=== PATIENT | female | born 1950 | race Caucasian/White ===

== ENCOUNTER 2017-01-04 14:23 | Emergency (ER) | payer OTHER ==
--- NOTE | 2017-01-04 15:08 | REP ---
LEFT ELBOW SERIES: Four views. HISTORY: Trauma. FINDINGS: Four views of the left elbow demonstrate a subtle fracture of the proximal radial head with hemarthrosis. There is a positive anterior fat pad sign. There is no proximal ulnar or distal humeral fracture is seen. IMPRESSION: Proximal radial head fracture with hemarthrosis and positive fat pad sign. Signed by Jose E Torres MD 01/04/2017 04:01 P
[2017-01-04] MEDS ORDERED: ACETAMINOPH W/CODEINE #3 TAB UD As Ordered ONE (15:22)
--- NOTE | 2017-01-04 15:44 | EDDOCDS ---
Nurse's Notes [facility] Name: Edith Ackerman Age: 66 yrs Sex: Female : 1950 Arrival Date: 01/04/2017 Time: 14:23 Bed PD Private MD: NO PRIMARY PHYSICIAN, . Diagnosis: Fracture of head of radius-Proximal radial head fracture with hemarthrosis and positive fat pad sign, Left, Closed Presentation: 01/04 14:32 Presenting complaint: Patient states: about [address] injuring her left kpj elbow. Adult Sepsis Screening: The patient does not have new or worsening altered mentation. Patient's respiratory rate is less than 22. Systolic blood pressure is greater than 100. Patient has a qSOFA score of. Suicide/Homicide risk assessment- the patient denies having any suicidal and/or homicidal ideations and does not present with any other emotional, behavioral or mental health complaints. Status: Patient is not a eligibility services representative or dependent. Transition of care: patient was not received from another setting of care. 14:32 Acuity: BHARATI Level 4 [facility] 14:32 Method Of Arrival: Walkin/Carried/Asstd [facility] Triage Assessment: 14:33 General: Appears uncomfortable, Behavior is appropriate for age, pleasant. Pain: kpj Location: left elbow Pain currently is 9 out of 10 on a pain scale. Neurological: Level of Consciousness is awake, alert, Oriented to person, place, time. Respiratory: Airway is patent Respiratory effort is even, unlabored, Respiratory pattern is regular, symmetrical. Derm: Skin is pink, warm & dry. Musculoskeletal: Circulation, motion, and sensation intact Capillary refill < 3 seconds in left fingers Range of motion limited in left elbow Reports pain in left elbow. Injury Description: pt fell from standing. Historical: - Allergies: No known drug Allergies; - Home Meds: 1. none - PMHx: Rheumatoid Arthritis; - PSHx: none; - Social history: Smoking status: Patient uses tobacco products, heavy tobacco smoker. No barriers to communication noted, The patient speaks fluent Mozambican. - Family history: Not pertinent. - : The pt / caregiver states he / she is not on anticoagulants. Home medication list is obtained from the patient. - Exposure Risk Screening:: None identified. Screenin:24 Screening information is obtained from the patient. Fall risk: No risks identified. srm Assistance ADL's: requires no assistance with activities of daily living. Abuse/DV Screen: The patient / caregiver reports he/she is: not in a situation that causes fear, pain or injury. Nutritional screening: No deficits noted. home support is adequate. 15:38 Advance Directives: There is. [facility] Assessment: 15:24 General: Appears in no apparent distress, Behavior is appropriate for age, cooperative. srm EENT: No deficits noted. Respiratory: No deficits noted. Musculoskeletal: Reports left elbow pain. moves fingers well. 15:38 General: Appears in no apparent distress, comfortable, Behavior is appropriate for age, h cooperative, sling present on left arm, CSM in tact, reviewed discharge instructions with patient, encouraged and answered questions, declines further needs. Vital Signs: 14:26 BP 133 / 77; Pulse 70; Resp 17; Temp 96.4(T); Pulse Ox 94% on R/A; Weight 63.5 kg (R); lr2 Height 4 ft. 10 in. (147.32 cm) (R); Pain 9/10; 15:29 BP 134 / 86; Pulse 65; Resp 18; Temp 98.2(TE); Pulse Ox 96% on R/A; Pain 9/10; dem1 14:26 Body Mass Index 29.26 (63.50 kg, 147.32 cm) lr2 Vitals: 14:26 Log In Time: January 04, 2017 at 14:23. lr2 ED Course: 14:24 Patient visited by Shelby Martinez. lr2 14:24 Patient moved to Waiting lr2 14:25 NO PRIMARY PHYSICIAN, . is Private Physician. lr2 14:26 Patient moved to Pre RCE lr2 14:33 Triage Initiated [facility] 14:57 [facility] ef1 14:57 Jennyfer aWn MD is Attending Physician. ef1 14:59 Patient visited by Renita Bay PA-C. ef1 14:59 Patient moved to PD2 ef[facility]. ef1 15:24 The patient / caregiver is instructed regarding the plan of care and ED course. Patient srm has correct armband on for positive identification. 15:25 Patient visited by Radha Hirsch RN. srm 15:25 Elbow, Complete Returned. EDNH 15:28 Sling applied to left arm. dem1 15:29 Patient visited by Julio C Leija. dem1 15:32 COUNTS INCLUDE 234 BEDS AT THE [facility] Payment Agreement was scanned into [employer] and attached to record. 15:38 No IV's were initiated during this patient's visit. No procedures done that require [facility] assistance. Administered Medications: 15:24 Drug: Acetaminophen-Codeine 1 tabs [acetaminophen 300 mg-codeine 30 mg tablet (1 tabs)] srm Route: PO; Order Results: Radiology Order: Elbow, Complete Test: Elbow, Complete REASON FOR EXAMINATION: Trauma; LEFT ELBOW SERIES: Four views.; ; HISTORY: Trauma.; ; FINDINGS: Four views of the left elbow demonstrate a subtle fracture of the; proximal radial head with hemarthrosis. There is a positive anterior fat pad; sign. There is no proximal ulnar or distal humeral fracture is seen.; ; IMPRESSION:; Proximal radial head fracture with hemarthrosis and positive fat pad sign.; ; ; ; ; Unreviewed; Outcome: 15:21 Discharge ordered by Provider. 1 15:38 Discharge Assessment: Patient awake, alert and oriented x 3. No cognitive and/or [facility] functional deficits noted. Patient verbalized understanding of disposition instructions. patient administered narcotics - no. The following High Risk Discharge criteria are identified: None. Discharged to home ambulatory. Condition: good Condition: stable Condition: improved. Discharge instructions given to patient, Instructed on discharge instructions, follow up and referral plans. medication usage, no driving heavy equipment, no drinking with medication, Demonstrated understanding of instructions, medications, Pt was receptive of discharge instructions/ teaching. Prescriptions given X 1. No special radiology studies were completed. Property :Personal belongings accompany Pt. 15:43 Patient left the ED. [facility] Signatures: Dispatcher [facility] Bella Roberts RN RN kpj Michelson, Staci, RN RN [facility] Vickey Jeffrey, Reg Reg Renita Bay, PA-C PA-C ef1 Julio C Leija dem1 Chayo Tavares RN RN Shelby Musa lr2 MTDD
--- NOTE | 2017-01-04 15:44 | EDDOCDS ---
Physician Documentation [facility] Name: Edith Ackerman Age: 66 yrs Sex: Female : 1950 Arrival Date: 01/04/2017 Time: 14:23 Bed PD Private MD: NO PRIMARY PHYSICIAN, . Disposition: 01/04/17 15:21 Discharged to Home/Self Care. Impression: Fracture of head of radius - Proximal radial head fracture with hemarthrosis and positive fat pad sign, Left, Closed. - Condition is Stable. - Discharge Instructions: Radial Head Fracture, [id number]. - Prescriptions for Tylenol- Codeine #3 300-30 mg Oral Tablet - take 1 tablet by ORAL route every 6 hours As needed MDD: 4 tabs; 20 tablet. - Medication Reconciliation, Local Pharmacy Hours form. - Follow up: [facility]; When: 1 - 2 days; Reason: Further diagnostic work-up, Recheck today's complaints, Continuance of care. Follow up: Emergency Department; Reason: Worsening of conditions. - Problem is new. - Symptoms have improved. Historical: - Allergies: No known drug Allergies; - Home Meds: 1. none - PMHx: Rheumatoid Arthritis; - PSHx: none; - Social history: Smoking status: Patient uses tobacco products, heavy tobacco smoker. No barriers to communication noted, The patient speaks fluent Bermudian. - Family history: Not pertinent. - : The pt / caregiver states he / she is not on anticoagulants. Home medication list is obtained from the patient. - Exposure Risk Screening:: None identified. Vital Signs: 01/04 14:26 BP 133 / 77; Pulse 70; Resp 17; Temp 96.4(T); Pulse Ox 94% on R/A; Weight 63.5 kg / lr2 139.99 lbs (R); Height 4 ft. 10 in. (147.32 cm) (R); Pain 9/10; 15:29 BP 134 / 86; Pulse 65; Resp 18; Temp 98.2(TE); Pulse Ox 96% on R/A; Pain 9/10; dem1 14:26 Body Mass Index 29.26 (63.50 kg, 147.32 cm) lr2 Procedures: 15:13 Fracture care/splinting: Splint applied to left elbow using sling, applied by tech. ef1 Examined by me, post splint application: neurovascular intact, 2+ distal pulses palpable, brisk capillary refill noted, Patient tolerated well. MDM: 14:36 Elbow, Complete Ordered. EDMS 15:12 Financial registration complete. lg 15:20 Acetaminophen-Codeine 300 mg-30 mg 1 tabs PO once ordered. ef1 15:20 Ice Pack ordered. ef1 15:21 Sling ordered. ef1 15:32 [facility] [place] Payment Agreement was scanned into [employer] and attached to record. lg Administered Medications: 15:24 Drug: Acetaminophen-Codeine 1 tabs [acetaminophen 300 mg-codeine 30 mg tablet (1 tabs)] srm Route: PO; Signatures: Dispatcher [employer] EDAK Bella Roberts RN RN Radha Wellington RN RN srm Vickey Jeffrey, Reg Reg lg Renita Bay, PA-C PA-C [facility] Chayo Tavares RN RN [facility] The chart was reviewed and I authenticate all verbal orders and agree with the evaluation and treatment provided.Attachments: 15:32 [facility] Payment Agreement lg MTDD
--- NOTE | 2017-01-06 16:44 | EDDOCDS ---
Physician Documentation [facility] Name: Edith Ackerman Age: 66 yrs Sex: Female : 1950 Arrival Date: 01/04/2017 Time: 14:23 Bed PD Private MD: NO PRIMARY PHYSICIAN, . Disposition: 01/04/17 15:21 Discharged to Home/Self Care. Impression: Fracture of head of radius - Proximal radial head fracture with hemarthrosis and positive fat pad sign, Left, Closed. - Condition is Stable. - Discharge Instructions: Radial Head Fracture, [id number]. - Prescriptions for Tylenol- Codeine #3 300-30 mg Oral Tablet - take 1 tablet by ORAL route every 6 hours As needed MDD: 4 tabs; 20 tablet. - Medication Reconciliation, Local Pharmacy Hours form. - Follow up: [facility]; When: 1 - 2 days; Reason: Further diagnostic work-up, Recheck today's complaints, Continuance of care. Follow up: Emergency Department; Reason: Worsening of conditions. - Problem is new. - Symptoms have improved. Historical: - Allergies: No known drug Allergies; - Home Meds: 1. none - PMHx: Rheumatoid Arthritis; - PSHx: none; - Social history: Smoking status: Patient uses tobacco products, heavy tobacco smoker. No barriers to communication noted, The patient speaks fluent Croatian. - Family history: Not pertinent. - : The pt / caregiver states he / she is not on anticoagulants. Home medication list is obtained from the patient. - Exposure Risk Screening:: None identified. Vital Signs: 01/04 14:26 BP 133 / 77; Pulse 70; Resp 17; Temp 96.4(T); Pulse Ox 94% on R/A; Weight 63.5 kg / lr2 139.99 lbs (R); Height 4 ft. 10 in. (147.32 cm) (R); Pain 9/10; 15:29 BP 134 / 86; Pulse 65; Resp 18; Temp 98.2(TE); Pulse Ox 96% on R/A; Pain 9/10; dem1 14:26 Body Mass Index 29.26 (63.50 kg, 147.32 cm) lr2 Procedures: 15:13 Fracture care/splinting: Splint applied to left elbow using sling, applied by tech. ef1 Examined by me, post splint application: neurovascular intact, 2+ distal pulses palpable, brisk capillary refill noted, Patient tolerated well. MDM: 14:36 Elbow, Complete Ordered. EDMS 15:12 Financial registration complete. lg 15:20 Acetaminophen-Codeine 300 mg-30 mg 1 tabs PO once ordered. ef1 15:20 Ice Pack ordered. ef1 15:21 Sling ordered. ef1 15:32 [facility] [place] [place] Payment Agreement was scanned into [email or web address] and attached to record. lg 22:37 T-Sheet-- Draft Copy was scanned into [email or web address] and attached to record. klr 01/05 11:41 Radiology Report was scanned into [email or web address] and attached to record. gb Administered Medications: 01/04 15:24 Drug: Acetaminophen-Codeine 1 tabs [acetaminophen 300 mg-codeine 30 mg tablet (1 tabs)] srm Route: PO; 15:44 Follow up: Response: Confirmed pt not driving.; No Adverse Reaction; Pain is decreased [facility] Signatures: Dispatcher [employer] EDSD Bella Roberts RN RN kpj Michelson, Staci, RN RN srm Larry, Dian, Reg Reg gb Vickey Jeffrey, Reg Reg lg Renita Bay, PA-C PA-C ef1 Chayo TavaresRN RN [facility] May Soria The chart was reviewed and I authenticate all verbal orders and agree with the evaluation and treatment provided.Attachments: 15:32 [facility] [place] [place] Payment Agreement lg 22:37 T-Sheet-- Draft Copy klr Chart Complete MTDD
--- NOTE | 2017-01-06 16:44 | EDDOCDS ---
Physician Documentation [facility] Name: Edith Ackerman Age: 66 yrs Sex: Female : 1950 Arrival Date: 01/04/2017 Time: 14:23 Bed PD Private MD: NO PRIMARY PHYSICIAN, . Disposition: 01/04/17 15:21 Discharged to Home/Self Care. Impression: Fracture of head of radius - Proximal radial head fracture with hemarthrosis and positive fat pad sign, Left, Closed. - Condition is Stable. - Discharge Instructions: Radial Head Fracture, [id number]. - Prescriptions for Tylenol- Codeine #3 300-30 mg Oral Tablet - take 1 tablet by ORAL route every 6 hours As needed MDD: 4 tabs; 20 tablet. - Medication Reconciliation, Local Pharmacy Hours form. - Follow up: [facility]opa[facility]; When: 1 - 2 days; Reason: Further diagnostic work-up, Recheck today's complaints, Continuance of care. Follow up: Emergency Department; Reason: Worsening of conditions. - Problem is new. - Symptoms have improved. Historical: - Allergies: No known drug Allergies; - Home Meds: 1. none - PMHx: Rheumatoid Arthritis; - PSHx: none; - Social history: Smoking status: Patient uses tobacco products, heavy tobacco smoker. No barriers to communication noted, The patient speaks fluent [place]. - Family history: Not pertinent. - : The pt / caregiver states he / she is not on anticoagulants. Home medication list is obtained from the patient. - Exposure Risk Screening:: None identified. Vital Signs: 01/04 14:26 BP 133 / 77; Pulse 70; Resp 17; Temp 96.4(T); Pulse Ox 94% on R/A; Weight 63.5 kg / lr2 139.99 lbs (R); Height 4 ft. 10 in. (147.32 cm) (R); Pain 9/10; 15:29 BP 134 / 86; Pulse 65; Resp 18; Temp 98.2(TE); Pulse Ox 96% on R/A; Pain 9/10; dem1 14:26 Body Mass Index 29.26 (63.50 kg, 147.32 cm) lr2 Procedures: 15:13 Fracture care/splinting: Splint applied to left elbow using sling, applied by tech. ef1 Examined by me, post splint application: neurovascular intact, 2+ distal pulses palpable, brisk capillary refill noted, Patient tolerated well. MDM: 14:36 Elbow, Complete Ordered. EDMS 15:12 Financial registration complete. lg 15:20 Acetaminophen-Codeine 300 mg-30 mg 1 tabs PO once ordered. ef1 15:20 Ice Pack ordered. ef1 15:21 Sling ordered. ef1 15:32 [facility] [place] Payment Agreement was scanned into [employer] and attached to record. lg 22:37 T-Sheet-- Draft Copy was scanned into [employer] and attached to record. klr 01/05 11:41 Radiology Report was scanned into [employer] and attached to record. gb Administered Medications: 01/04 15:24 Drug: Acetaminophen-Codeine 1 tabs [acetaminophen 300 mg-codeine 30 mg tablet (1 tabs)] srm Route: PO; 15:44 Follow up: Response: Confirmed pt not driving.; No Adverse Reaction; Pain is decreased [facility] Signatures: Dispatcher [employer] EDOK Bella Roberts RN RN kpj Michelson, Staci, RN RN srm Larry, Dian, Reg Reg gb Vickey Jeffrey, Reg Reg lg Renita Bay, PA-C PA-C ef1 Chayo TavaresRN RN [facility] May Soria The chart was reviewed and I authenticate all verbal orders and agree with the evaluation and treatment provided.Attachments: 15:32 [facility] Payment Agreement lg 22:37 T-Sheet-- Draft Copy klr Chart Complete MTDD
--- NOTE | 2017-01-06 16:44 | EDDOCDS ---
Nurse's Notes [facility] Name: Edith Ackerman Age: 66 yrs Sex: Female : 1950 Arrival Date: 01/04/2017 Time: 14:23 Bed PD Private MD: NO PRIMARY PHYSICIAN, . Diagnosis: Fracture of head of radius-Proximal radial head fracture with hemarthrosis and positive fat pad sign, Left, Closed Presentation: 01/04 14:32 Presenting complaint: Patient states: about [address] injuring her left kpj elbow. Adult Sepsis Screening: The patient does not have new or worsening altered mentation. Patient's respiratory rate is less than 22. Systolic blood pressure is greater than 100. Patient has a qSOFA score of. Suicide/Homicide risk assessment- the patient denies having any suicidal and/or homicidal ideations and does not present with any other emotional, behavioral or mental health complaints. Status: Patient is not a family services worker or dependent. Transition of care: patient was not received from another setting of care. 14:32 Acuity: BHARATI Level 4 [facility] 14:32 Method Of Arrival: Walkin/Carried/Asstd [facility] Triage Assessment: 14:33 General: Appears uncomfortable, Behavior is appropriate for age, pleasant. Pain: kpj Location: left elbow Pain currently is 9 out of 10 on a pain scale. Neurological: Level of Consciousness is awake, alert, Oriented to person, place, time. Respiratory: Airway is patent Respiratory effort is even, unlabored, Respiratory pattern is regular, symmetrical. Derm: Skin is pink, warm & dry. Musculoskeletal: Circulation, motion, and sensation intact Capillary refill < 3 seconds in left fingers Range of motion limited in left elbow Reports pain in left elbow. Injury Description: pt fell from standing. Historical: - Allergies: No known drug Allergies; - Home Meds: 1. none - PMHx: Rheumatoid Arthritis; - PSHx: none; - Social history: Smoking status: Patient uses tobacco products, heavy tobacco smoker. No barriers to communication noted, The patient speaks fluent Bolivian. - Family history: Not pertinent. - : The pt / caregiver states he / she is not on anticoagulants. Home medication list is obtained from the patient. - Exposure Risk Screening:: None identified. Screenin:24 Screening information is obtained from the patient. Fall risk: No risks identified. srm Assistance ADL's: requires no assistance with activities of daily living. Abuse/DV Screen: The patient / caregiver reports he/she is: not in a situation that causes fear, pain or injury. Nutritional screening: No deficits noted. home support is adequate. 15:38 Advance Directives: There is. [facility] Assessment: 15:24 General: Appears in no apparent distress, Behavior is appropriate for age, cooperative. srm EENT: No deficits noted. Respiratory: No deficits noted. Musculoskeletal: Reports left elbow pain. moves fingers well. 15:38 General: Appears in no apparent distress, comfortable, Behavior is appropriate for age, h cooperative, sling present on left arm, CSM in tact, reviewed discharge instructions with patient, encouraged and answered questions, declines further needs. Vital Signs: 14:26 BP 133 / 77; Pulse 70; Resp 17; Temp 96.4(T); Pulse Ox 94% on R/A; Weight 63.5 kg (R); lr2 Height 4 ft. 10 in. (147.32 cm) (R); Pain 9/10; 15:29 BP 134 / 86; Pulse 65; Resp 18; Temp 98.2(TE); Pulse Ox 96% on R/A; Pain 9/10; dem1 14:26 Body Mass Index 29.26 (63.50 kg, 147.32 cm) lr2 Vitals: 14:26 Log In Time: January 04, 2017 at 14:23. lr2 ED Course: 14:24 Patient visited by Shelby Martinez. lr2 14:24 Patient moved to Waiting lr2 14:25 NO PRIMARY PHYSICIAN, . is Private Physician. lr2 14:26 Patient moved to Pre RCE lr2 14:33 Triage Initiated [facility] 14:57 Renita Bay [facility] ef[facility] 14:57 Jennyfer Wan MD is Attending Physician. ef1 14:59 Patient visited by Renita Bay PA-C. ef1 14:59 Patient moved to PD2 ef1 15:21 [facility]. ef1 15:24 The patient / caregiver is instructed regarding the plan of care and ED course. Patient srm has correct armband on for positive identification. 15:25 Patient visited by Radha Hirsch RN. srm 15:25 Elbow, Complete Returned. EDMS 15:28 Sling applied to left arm. dem1 15:29 Patient visited by Julio C Leija. dem1 15:32 [facility] Payment Agreement was scanned into [employer] and attached to record. 15:38 No IV's were initiated during this patient's visit. No procedures done that require [facility] assistance. 22:37 T-Sheet-- Draft Copy was scanned into [employer] and attached to record. klr 01/05 11:41 Radiology Report was scanned into [employer] and attached to record. gb Administered Medications: 01/04 15:24 Drug: Acetaminophen-Codeine 1 tabs [acetaminophen 300 mg-codeine 30 mg tablet (1 tabs)] [facility] Route: PO; 15:44 Follow up: Response: Confirmed pt not driving.; No Adverse Reaction; Pain is decreased [facility] Order Results: Radiology Order: Elbow, Complete Test: Elbow, Complete REASON FOR EXAMINATION: Trauma; LEFT ELBOW SERIES: Four views.; ; HISTORY: Trauma.; ; FINDINGS: Four views of the left elbow demonstrate a subtle fracture of the; proximal radial head with hemarthrosis. There is a positive anterior fat pad; sign. There is no proximal ulnar or distal humeral fracture is seen.; ; IMPRESSION:; ; Proximal radial head fracture with hemarthrosis and positive fat pad sign.; ; ; Signed by; Jose E Torres MD 01/04/2017 04:01 P; Outcome: 15:21 Discharge ordered by Provider. ef1 15:38 Discharge Assessment: Patient awake, alert and oriented x 3. No cognitive and/or [facility] functional deficits noted. Patient verbalized understanding of disposition instructions. patient administered narcotics - no. The following High Risk Discharge criteria are identified: None. Discharged to home ambulatory. Condition: good Condition: stable Condition: improved. Discharge instructions given to patient, Instructed on discharge instructions, follow up and referral plans. medication usage, no driving heavy equipment, no drinking with medication, Demonstrated understanding of instructions, medications, Pt was receptive of discharge instructions/ teaching. Prescriptions given X 1. No special radiology studies were completed. Property :Personal belongings accompany Pt. 15:43 Patient left the ED. [facility] Signatures: [facility]patcher [facility] Bella Roberts RN RN kpj Michelson, Staci, RN RN srm Barnhardt, Gloria, Reg Reg gb Vickey Jeffrey, Reg Reg lg Renita Bay, JAE PAChristine gonzalez1 Julio C Leija1 Chayo Tavares RN RN cjh Redder, Shelby Broderick2 Chart Complete MTDD
== END 2017-01-04 15:43 | disposition home or self-care (01) ==
LOC: M ED 14:23
DX: S52.125A Nondisplaced fracture of head of left radius, initial encounter for closed fracture (principal); W00.9XXA Unspecified fall due to ice and snow, initial encounter; Y92.410 Unspecified street and highway as the place of occurrence of the external cause; Y93.89 Activity, other specified; Y99.8 Other external cause status; M06.9 Rheumatoid arthritis, unspecified; F17.200 Nicotine dependence, unspecified, uncomplicated

== ENCOUNTER 2025-07-20 06:51 | Day surgery (SDC) | payer MEDICARE ==
[~2025-07-20] VITALS: Ht 144.8 cm; Wt 47.2 kg
[~2025-07-20 06:51] MED LIST: ALEV220T22 PO; ALLE180T33 PO; PHENYLEPHRINE 10% OPHTH SOL 5ML OS PRN
[2025-07-20] MEDS: OFLOXACIN 0.3 % (OCUFLOX) OPTH SOL 5ML OS ONE (07:31)
[2025-07-20] MEDS: LIDOCAINE 3.5% 1 ML OPHTH TOPICAL GEL OU ONE (07:31)
[2025-07-20] MEDS: CYCLOPENTOLATE 1% OPHTH SOLN 2 ML BTL OS SCH (07:31)
[2025-07-20] MEDS: PHENYLEPHRINE 2.5% OPHTH SOL 2ML OS SCH (07:31)
[2025-07-20] MEDS: TROPICAMIDE 1% OPHTH SOLN 15ML OS SCH (07:31)
[2025-07-20] MEDS: LIDOCAINE 1% SDV 5 ML VIAL As Ordered ONE (08:44)
[2025-07-20] MEDS: BSS IRRIG/VANCO(10MG)/TOBRA(5MG)/EPINEPH(1:1000-0.5CC)500ML BAG-ORONLY As Ordered ONE (08:44)
[2025-07-20] MEDS: CEFUROXIME 1 MG/0.1 ML INTRACAMERAL INJ As Ordered ONE (08:44)
[2025-07-20 09:00] VITALS: BP 113/58; TEMP 97.1; O2SAT 96
== END 2025-07-20 09:12 | disposition home or self-care (01) ==
LOC: M SDC 06:51
PROVIDERS: ATTEND Ophthalmology
DX: H25.12 Age-related nuclear cataract, left eye (principal); M06.9 Rheumatoid arthritis, unspecified; N39.3 Stress incontinence (female) (male); Z79.899 Other long term (current) drug therapy; F17.210 Nicotine dependence, cigarettes, uncomplicated
CPT/HCPCS: 66984; J0697; V2632

== ENCOUNTER 2025-08-17 06:15 | Day surgery (SDC) | payer MEDICARE ==
[~2025-08-17] VITALS: Ht 139.7 cm; Wt 48.1 kg
[~2025-08-17 06:15] MED LIST changes: +PHENYLEPHRINE 10% OPHTH SOL 5ML OD PRN; -PHENYLEPHRINE 10% OPHTH SOL 5ML OS PRN
[2025-08-17] MEDS: OFLOXACIN 0.3 % (OCUFLOX) OPTH SOL 5ML OD ONE (06:35)
[2025-08-17] MEDS: LIDOCAINE 3.5% 1 ML OPHTH TOPICAL GEL OU ONE (06:35)
[2025-08-17] MEDS: TROPICAMIDE 1% OPHTH SOLN 15ML OD SCH (06:36)
[2025-08-17] MEDS: CYCLOPENTOLATE 1% OPHTH SOLN 2 ML BTL OD SCH (06:36)
[2025-08-17] MEDS: PHENYLEPHRINE 2.5% OPHTH SOL 2ML OD SCH (06:36)
[2025-08-17] MEDS ORDERED: MIDAZOLAM INJ 2 MG/2 ML VIAL As Ordered ONE (06:58)
[2025-08-17] MEDS: LIDOCAINE 1% SDV 5 ML VIAL As Ordered ONE (08:05)
[2025-08-17] MEDS: CEFUROXIME 1 MG/0.1 ML INTRACAMERAL INJ As Ordered ONE (08:06)
[2025-08-17] MEDS: BSS IRRIG/VANCO(10MG)/TOBRA(5MG)/EPINEPH(1:1000-0.5CC)500ML BAG-ORONLY As Ordered ONE (08:06)
[2025-08-17 08:15] VITALS: BP 114/58; TEMP 97.2; O2SAT 96
== END 2025-08-17 08:29 | disposition home or self-care (01) ==
LOC: M SDC 06:15
PROVIDERS: ATTEND Ophthalmology
DX: H25.11 Age-related nuclear cataract, right eye (principal); F17.210 Nicotine dependence, cigarettes, uncomplicated; M06.9 Rheumatoid arthritis, unspecified; Z98.42 Cataract extraction status, left eye
CPT/HCPCS: 66984; J0697; J2250; J3010; V2632